=== PATIENT | male | born 1950 | race Caucasian/White ===

== ENCOUNTER → 2018-03-11 | Outpatient (CLI) | payer OTHER | LOC: CIMAGING 13:16 | PROVIDERS: ATTEND Family Medicine | DX: N64.89 Other specified disorders of breast (principal) | CPT/HCPCS: 76641-PO ==

== ENCOUNTER 2018-07-09 08:55 | Emergency (ER) | payer OTHER ==
--- NOTE | 2018-07-09 09:16 | EDPHY ---
H & P Time Seen by Provider: 07/09/18 09:03 HPI/ROS: CHIEF COMPLAINT: Left-sided weakness HISTORY OF PRESENT ILLNESS: Of note patient was admitted for right-sided weakness in March of 2014 but had a negative workup at that time. He felt well yesterday, went to bed around 10:30 p.m., last awakened feeling normal at 4 :30 a.m. To urinate. At 6:30 a.m. He awakened with a little bit of right-sided head pressure and weakness in his left hand and left leg. Symptoms are mild, not associated with neck pain or incontinence or difficulty with speech. Said he felt a little bit difficulty with balance but no vertigo and was able to walk back to the room unassisted. No sensory deficit. Not better or worse with anything. REVIEW OF SYSTEMS: Eye: no change in vision ENT: no sore throat Cardiac: no chest pain or syncope Pulmonary: no cough or SOB Abdomen: no vomiting, diarrhea, abdominal pain Musculoskeletal: no back pain Skin: no rash Neuro: HPI Constitutional: no fever : no urinary symptoms A comprehensive 10 point review of systems is otherwise negative aside from elements mentioned in the history of present illness. PAST MEDICAL HISTORY: Includes hypertension, coronary disease, hypothyroid, cervical stenosis with 4 level fusion. Back surgery. Social history: Nonsmoker, saw Dr. Jeffery previously from Neurology General Appearance: Alert and conversant, cooperative. Eyes: No scleral icterus. Pupils equal reactive extraocular motion intact. ENT, Mouth: Normal mucous membranes. Respiratory: Normal respiratory effort, breath sounds equal, lungs are clear to auscultation. Cardiovascular: Regular rate and rhythm. Gastrointestinal: Abdomen is soft and non tender. Neurological: Alert, face symmetric, normal motor and sensory in extremities. I cannot detect strength deficit in plantar flexion or dorsiflexion of his left foot, or and radial ulnar or median nerve distribution of the left hand. Ambulatory without ataxia. Normal [id number] bilaterally. Speech fluent. Skin: Warm and dry, no rashes. Musculoskeletal: No peripheral edema. Psychiatric: Not agitated. Emergency Department course/MDM: Patient has symptoms concerning for stroke or TIA but without objective neurologic deficit, therefore is not made a stroke alert. Plan for CT and CTA, EKG, labs, phone consultation with Neurology. 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 958: discussed with Ya Jeffery, he recommends it is reasonable to DC if head MRI negative for CVA, will include C-spine. Discussed with patient and consented. 1154: Discussed Na neurosurgery will review MRI with attending. 1220: Discussed with patient, flexion extension recommended by Neurosurgery and consented with the patient. Per Neurosurgery no additional therapy required , MRI reviewed by Dr. Tinajero. 1302: Per Jaren on flexion increases from 6-8 mm, discussed with Neurosurgery again; advised DC no further therapy. Smoking Status: Never smoked Constitutional: Initial Vital Signs Temperature (C) 36.5 C 07/09/18 08:56 Heart Rate 91 07/09/18 08:56 Respiratory Rate 16 07/09/18 08:56 Blood Pressure 174/80 H 07/09/18 08:56 O2 Sat (%) 96 07/09/18 08:56 O2 Delivery Mode Room Air Allergies/Adverse Reactions: No Known Allergies Allergy (Verified 07/21/13 12:07) Home Medications: Medication Instructions Recorded Avapro 07/09/18 Crestor 07/09/18 Thyroid 07/09/18 Medical Decision Making - Diagnostics EKG Interpretation: 12-lead EKG interpreted by me; official reading is in computer system. My interpretation is sinus rhythm with left atrial enlargement, long QT. Imaging Results: Imaging Impressions Brain MRI 07/09/18 10:00 Impression: 1. No acute intracranial findings. 2. Minimal atrophy with white matter change most likely related to chronic microvascular ischemic gliosis. Findings discussed with Benito Lopes MD on July 09, 2018 at 1105 hours. Cervical Spine MRI 07/09/18 10:00 Impression: 1. C7-T1: Severe spinal canal narrowing, with effacement of CSF adjacent to the cord limiting assessment for cord compression, with moderate to severe neural foraminal stenosis. 2. C3-C4: Stable moderate to severe spinal canal narrowing, with slight increase in mild to moderate bilateral neural foraminal stenosis, left greater than right. 3. C6-C7: Slight increase in severe left and moderate to severe right neural foraminal stenosis, with stable mild to moderate spinal canal narrowing. 4. C2-C3: Increased degenerative change, with increased moderate to severe left and moderate right neural foraminal stenosis. Findings discussed with Benito Lopes M.D., on July 09, 2018 at 1141. Imaging: Discussed imaging studies w/ call centre supervisor Radiologist Differential Diagnosis: Differential for arm and leg weakness considered including but not limited to ischemic stroke, intracranial bleed or mass, cervical myelopathy, spinal cord compression - Data Points Laboratory Results: Laboratory Results 07/09/18 10:00 07/09/18 09:20 07/09/18 07/09/18 07/09/18 10:00 09:27 09:20 WBC 4.15 10^3/uL 10^3/uL (3.80-9.50) RBC 4.08 10^6/uL L 10^6/uL (4.40-6.38) Hgb 13.7 g/dL g/dL (13.7-17.5) POC Hgb 15.0 gm/dL gm/dL (13.7-17.5) Hct 40.4 % % (40.0-51.0) POC Hct 44 % % (40-51) MCV 99.0 fL fL (81.5-99.8) MCH 33.6 pg pg (27.9-34.1) MCHC 33.9 g/dL g/dL (32.4-36.7) RDW 13.0 % % (11.5-15.2) Plt Count 219 10^3/uL 10^3/uL (150-400) MPV 10.4 fL fL (8.7-11.7) Neut % (Auto) 59.6 % % (39.3-74.2) Lymph % (Auto) 22.4 % % (15.0-45.0) [place] % (Auto) 13.7 % H % (4.5-13.0) Eos % (Auto) 3.4 % % (0.6-7.6) Baso % (Auto) 0.7 % % (0.3-1.7) Nucleat RBC Rel Count 0.0 % % (0.0-0.2) Absolute Neuts (auto) 2.47 10^3/uL 10^3/uL (1.70-6.50) Absolute Lymphs (auto) 0.93 10^3/uL L 10^3/uL (1.00-3.00) Absolute Monos (auto) 0.57 10^3/uL 10^3/uL (0.30-0.80) Absolute Eos (auto) 0.14 10^3/uL 10^3/uL (0.03-0.40) Absolute Basos (auto) 0.03 10^3/uL 10^3/uL (0.02-0.10) Absolute Nucleated RBC 0.00 10^3/uL 10^3/uL (0-0.01) Immature Gran % 0.2 % % (0.0-1.1) Immature Gran # 0.01 10^3/uL 10^3/uL (0.00-0.10) PT INR POC Sodium 143 mEq/L mEq/L (135-145) Sodium 140 mEq/L mEq/L (135-145) POC Potassium 4.3 mEq/L mEq/L (3.3-5.0) Potassium 4.4 mEq/L mEq/L (3.5-5.2) POC Chloride 105 mEq/L mEq/L (97-110) Chloride 106 mEq/L mEq/L (97-110) Carbon Dioxide 23 mEq/l mEq/l (22-31) POC Total CO2 25 mEq/L mEq/L (22-31) Anion Gap 11 mEq/L mEq/L (6-14) POC BUN 32 mg/dL H mg/dL (7-23) BUN 26 mg/dL H mg/dL (7-23) Creatinine 1.2 mg/dL mg/dL (0.7-1.3) POC Creatinine 1.3 mg/dL mg/dL (0.7-1.3) Estimated GFR 60 Glucose 89 mg/dL mg/dL (70-100) POC Glucose 94 mg/dL mg/dL (70-100) Calcium 10.0 mg/dL mg/dL (8.5-10.4) 07/09/18 07/09/18 09:20 09:20 WBC REJ RBC REJ Hgb REJ POC Hgb Hct REJ POC Hct MCV REJ MCH REJ MCHC REJ RDW REJ Plt Count REJ MPV REJ Neut % (Auto) REJ Lymph % (Auto) REJ [place] % (Auto) REJ Eos % (Auto) REJ Baso % (Auto) REJ Nucleat RBC Rel Count REJ Absolute Neuts (auto) REJ Absolute Lymphs (auto) REJ Absolute Monos (auto) REJ Absolute Eos (auto) REJ Absolute Basos (auto) REJ Absolute Nucleated RBC REJ Immature Gran % REJ Immature Gran # REJ PT 14.6 SEC SEC (12.0-15.0) INR 1.19 H (0.83-1.16) POC Sodium Sodium POC Potassium Potassium POC Chloride Chloride Carbon Dioxide POC Total CO2 Anion Gap POC BUN BUN Creatinine POC Creatinine Estimated GFR Glucose POC Glucose Calcium Medications Given: Discontinued Medications Sodium Chloride (Ns) 1,000 mls @ 0 mls/hr IV ONCE ONE; Wide Open PRN Reason: Protocol Stop: 07/09/18 09:36 Last Admin: 07/09/18 09:42 Dose: 1,000 mls Point of Care Test Results: Chemistry 07/09/18 09:27 POC Sodium 143 mEq/L mEq/L (135-145) POC Potassium 4.3 mEq/L mEq/L (3.3-5.0) POC Chloride 105 mEq/L mEq/L (97-110) POC Total CO2 25 mEq/L mEq/L (22-31) POC BUN 32 mg/dL H mg/dL (7-23) POC Creatinine 1.3 mg/dL mg/dL (0.7-1.3) POC Glucose 94 mg/dL mg/dL (70-100) ISTAT H&H 07/09/18 09:27 POC Hgb 15.0 gm/dL gm/dL (13.7-17.5) POC Hct 44 % % (40-51) Departure - Departure Disposition: Home, Routine, Self-Care Clinical Impression: Weakness of distal arms and legs Condition: Good Instructions: Magnetic Resonance Imaging (ED) Additional Instructions: Please return right away if you get worsening weakness or any numbness in the left side, or any trouble with bowel or bladder. Please follow-up with neurosurgeon, your given a referral to the spine surgeon who reviewed your MRI today. Referrals: THERON BECERRA [Primary Care Provider] - As per Instructions Valdemar Tinajero MD [Medical Doctor] - As per Instructions
[2018-07-09] MEDS ORDERED: NS 1,000 ML IV ONE (09:35)
--- NOTE | 2018-07-09 09:43 | CPEKG ---
Test Reason : OPEN Blood Pressure : / mmHG Vent. Rate : 076 BPM Atrial Rate : 077 BPM P-R Int : 199 ms QRS Dur : 082 ms QT Int : 429 ms P-R-T Axes : 073 036 037 degrees QTc Int : 483 ms Sinus rhythm Left atrial enlargement Borderline prolonged QT interval Confirmed by Christie Ferreira ([id number]) on 07/09/2018 9:42:27 AM Referred By: CHRISTIE FERREIRA Confirmed By:Christie Ferreira
[2018-07-09 10:28] LABS: INR 1.19 (0.83-1.16); PROTIME(PATIENT) 14.6 SEC (12.0-15.0)
[2018-07-09 11:27] LABS: PLATELET COUNT 219 10^3/uL (150-400)
[2018-07-09 13:09] VITALS: BP 150/82
== END 2018-07-09 13:20 | disposition home or self-care (01) ==
DX: M48.02 Spinal stenosis, cervical region (principal); M48.03 Spinal stenosis, cervicothoracic region; M50.33 Other cervical disc degeneration, cervicothoracic region; M50.31 Other cervical disc degeneration, high cervical region; E86.9 Volume depletion, unspecified
CPT/HCPCS: 70551-PN; 82435-PO; 82565-PO; 82947-PO; 84132-PO; 84295-PO; 84520-PO; 85014-ER

== ENCOUNTER → 2018-08-18 | Outpatient (CLI) | payer OTHER | LOC: CREHS 10:54 | PROVIDERS: ATTEND Otolaryngology | DX: R13.10 Dysphagia, unspecified (principal) | CPT/HCPCS: 92611-GN ==

== ENCOUNTER → 2018-08-23 | Outpatient (CLI) | payer OTHER | LOC: FIMAGING 08:56 ==